=== PATIENT | female | born 1960 | race Caucasian/White ===

== ENCOUNTER 2017-09-01 09:30 | Emergency (ER) | payer OTHER ==
[~2017-09-01] VITALS: Ht 167.6 cm; Wt 127.0 kg
[~2017-09-01 09:30] MED LIST: DULO30 PO; Lasix20 MG PO; POTCHL10ER PO; Percocet 5-3251 EACH PO
[2017-09-01 10:12] LABS: BASOPHILS ABSOLUTE AUTO 0.04 K/mm3 (0.00-0.23); BASOPHILS PERCENT AUTO 1 % (0-2); EOSINOPHILS ABSOLUTE AUTO 0.16 K/mm3 (0.00-0.68); EOSINOPHILS PERCENT AUTO 2 % (0-6); Hematocrit 40.9 % (33.0-51.0); Hemoglobin 12.7 g/dL (11.5-16.0); IMMATURE GRAN ABSOLUTE AUTO 0.05 K/mm3 (0.00-0.10); IMMATURE GRAN PERCENT AUTO 1 % (0-1); LYMPHOCYTES ABSOLUTE AUTO 2.99 K/mm3 (0.84-5.20); LYMPHOCYTES PERCENT AUTO 42 % (21-46); MONOCYTES ABSOLUTE AUTO 0.43 K/mm3 (0.16-1.47); MONOCYTES PERCENT AUTO 6 % (4-13); Mean Corpuscular HGB 28.2 pg (26.0-34.0); Mean Corpuscular HGB Conc 31.1 g/dL (31.5-36.5); NEUTROPHILS ABSOLUTE AUTO 3.45 K/mm3 (1.96-9.15); NEUTROPHILS PERCENT AUTO 49 % (41-73); RDW Coefficient Variation 14.6 % (11.7-14.2); RDW Standard Deviation 48.8 fL (35.1-46.3); Red Blood Cell Count 4.51 M/mm3 (3.80-5.20); White Blood Cell Count 7.12 K/mm3 (4.00-11.30)
[2017-09-01 10:16] LABS: Mean Corpuscular Volume 91 fL (80-100); Mean Platelet Volume 9.8 fL (9.1-12.4); Platelet Count 300 K/mm3 (150-400)
[2017-09-01 10:20] LABS: Alanine Aminotransfer (ALT/SGP 21 U/L (12-78); Albumin, Blood 3.5 g/dL (3.4-5.0); Albumin/Globulin Ratio 0.9 (0.8-1.8); Alk Phos 89 U/L (50-136); Anion Gap 7 mmol/L (6-16); Aspartate Aminotrans (AST/SGOT 17 U/L (12-37); Bilirubin, Total 0.4 mg/dL (0.1-1.0); Blood Urea Nitrogen 18 mg/dL (8-24); Bun/Creatinine Ratio 23.4 (12.0-20.0); CO2, Blood 25 mmol/L (21-32); Calcium, Blood 8.7 mg/dL (8.5-10.1); Chloride, Blood 107 mmol/L (98-108); Creatinine, Blood 0.77 mg/dL (0.40-1.00); Globulin, Blood 3.8 g/dL (2.2-4.0); Glomerular Filtration Rate >60 (60-); Glucose, Blood 67 mg/dL (70-99); Potassium, Blood 4.2 mmol/L (3.5-5.5); Sodium, Blood 139 mmol/L (136-145); Total Protein, Blood 7.3 g/dL (6.4-8.2); Troponin I <0.015 ng/mL (0.000-0.040)
[2017-09-01] MEDS ORDERED: Pepcid40 MG PO (12:59)
[2018-01-18] MEDS ORDERED: IRON150C PO (14:14)
== END 2017-09-01 13:20 | disposition home or self-care (01) ==
LOC: ER 09:30
PROVIDERS: Emergency Medicine
DX: R07.9 Chest pain, unspecified (principal); K21.9 Gastro-esophageal reflux disease without esophagitis; Z79.899 Other long term (current) drug therapy
CPT/HCPCS: 36415; 71046; 80053; 84484; 85025; 93005; 93010; 99283; J3490

== ENCOUNTER 2017-12-09 10:23 | Day surgery (SDC) | payer OTHER ==
[~2017-12-09] VITALS: Ht 165.1 cm; Wt 126.6 kg
[~2017-12-09 10:23] MED LIST changes: +Pepcid40 MG PO
== END 2017-12-09 13:12 | disposition home or self-care (01) ==
LOC: ORSCSDS 10:23
PROVIDERS: Internal Medicine Gastroenterology
PROC: 0DB78ZX Excision of Stomach, Pylorus, Via Natural or Artificial Opening Endoscopic, Diagnostic (ICD-10-PCS; principal; 2017-12-09 12:30)
PROC: 0DB58ZX Excision of Esophagus, Via Natural or Artificial Opening Endoscopic, Diagnostic (ICD-10-PCS; principal; 2017-12-09 12:30)
DX: K21.9 Gastro-esophageal reflux disease without esophagitis (principal); K29.70 Gastritis, unspecified, without bleeding; G47.33 Obstructive sleep apnea (adult) (pediatric); J45.909 Unspecified asthma, uncomplicated; E66.01 Morbid (severe) obesity due to excess calories; Z68.42 Body mass index [BMI] 45.0-49.9, adult; Z79.899 Other long term (current) drug therapy; Z79.82 Long term (current) use of aspirin
CPT/HCPCS: 88305; 88312; 88342

== ENCOUNTER 2018-01-19 07:45 | Day surgery (SDC) | payer OTHER ==
[~2018-01-19] VITALS: Ht 165.1 cm; Wt 127.0 kg
[~2018-01-19 07:45] MED LIST changes: +IRON150C PO
== END 2018-01-19 22:44 | disposition home or self-care (01) ==
LOC: ORSCMMR 07:45 → ORD 07:45 → ORSCMMR 07:46 → ORD 10:00
PROVIDERS: Internal Medicine Gastroenterology
PROC: 0DBC8ZX Excision of Ileocecal Valve, Via Natural or Artificial Opening Endoscopic, Diagnostic (ICD-10-PCS; principal; 2018-01-19 10:00)
PROC: 0DBN8ZX Excision of Sigmoid Colon, Via Natural or Artificial Opening Endoscopic, Diagnostic (ICD-10-PCS; principal; 2018-01-19 10:00)
PROC: 0DBL8ZX Excision of Transverse Colon, Via Natural or Artificial Opening Endoscopic, Diagnostic (ICD-10-PCS; principal; 2018-01-19 10:00)
DX: K62.5 Hemorrhage of anus and rectum (principal); K63.5 Polyp of colon; D12.0 Benign neoplasm of cecum; D12.3 Benign neoplasm of transverse colon; Z86.010 Personal history of colon polyps; K57.30 Diverticulosis of large intestine without perforation or abscess without bleeding; G47.30 Sleep apnea, unspecified; F32.9 Major depressive disorder, single episode, unspecified; E66.9 Obesity, unspecified; Z68.42 Body mass index [BMI] 45.0-49.9, adult; Z79.899 Other long term (current) drug therapy
CPT/HCPCS: 88305; J2250; J3010; J7030

== ENCOUNTER 2018-06-26 13:54 | Emergency (ER) | payer OTHER ==
[~2018-06-26] VITALS: Ht 165.1 cm; Wt 131.5 kg
[2018-06-26] MEDS ORDERED: Prednisone5 MG PO (18:21)
[2018-06-26] MEDS ORDERED: Norco 5-325 Ta1 EACH PO (18:21)
== END 2018-06-26 18:40 | disposition home or self-care (01) ==
LOC: ER 13:54
DX: M35.3 Polymyalgia rheumatica (principal); R03.0 Elevated blood-pressure reading, without diagnosis of hypertension; R07.9 Chest pain, unspecified; F32.9 Major depressive disorder, single episode, unspecified; Z79.899 Other long term (current) drug therapy
CPT/HCPCS: 36415; 82550; 84484; 85651; 86140; 93005; 93010; 99283-25